=== PATIENT | male | born 1985 | race American Indian/Alaskan Native ===

== ENCOUNTER 2020-02-20 18:33 | Emergency (ER) | payer SELFPAY ==
[2020-02-20 20:00] VITALS: BP 136/78
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
== END 2020-02-20 21:02 | disposition left against medical advice (07) ==
LOC: ED 18:33
DX: G89.29 Other chronic pain (principal); M25.551 Pain in right hip; R07.81 Pleurodynia; Z79.899 Other long term (current) drug therapy
CPT/HCPCS: 99282